=== PATIENT | female | born 1980 | race African-American/Black ===

== ENCOUNTER 2021-10-22 14:16 | Emergency (ER) | payer BC ==
[2021-10-22 15:08] VITALS: TEMP 98.2; BMI 33.0
[2021-10-22 17:34] LABS: BASO % 0.4 % (0-2.0); EOS % 1.8 % (0-4.5); HEMATOCRIT 41.3 % (32.4-45.2); HEMOGLOBIN 13.6 GM/dL (10.7-15.3); LYMPH % 31.7 % (8-40); MCH 25.7 pg (25.7-33.7); MEAN CELL VOLUME 77.8 fl (80-96); MEAN PLT VOLUME 7.6 fl (7.5-11.1); MONO % 9.9 % (3.8-10.2); NEUT % 56.2 % (42.8-82.8); PLATELET COUNT 338 10^3/uL (134-434); RBC 5.31 M/mm3 (3.60-5.2); RDW 13.5 % (11.6-15.6); WHITE BLOOD COUNT 7.9 K/mm3 (4.0-10.0)
[2021-10-22 18:03] LABS: CALCIUM 9.3 mg/dL (8.5-10.1)
[2021-10-22 18:04] LABS: BLOOD UREA NITROGEN 8.8 mg/dL (7-18)
[2021-10-22 18:07] LABS: CREATININE 0.8 mg/dL (0.55-1.3)
[2021-10-22 18:09] LABS: BILIRUBIN,TOTAL 0.8 mg/dL (0.2-1); TOT PROT 7.9 g/dl (6.4-8.2)
[2021-10-22 19:24] LABS: EPI CELLS >36 /uL (0-25.1); HYALINE CASTS 2 /uL (0-3.1); URINE APPEARANCE CLOUDY; URINE BACTERIA 316 /uL (0-1359); URINE BILIRUBIN 1+ (NEGATIVE); URINE COLOR DK YELLOW; URINE GLUCOSE (UA) NEGATIVE (NEGATIVE); URINE KETONE TRACE (NEGATIVE); URINE LEUK ESTERASE TRACE (NEGATIVE); URINE NITRITE NEGATIVE (NEGATIVE); URINE PROTEIN 1+ (NEGATIVE); URINE WBC 10 /uL (0-25.8)
[2021-10-22 19:45] VITALS: BP 140/90; PULSE 85
[2021-10-22 21:50] LABS: URINE RBC 78 /uL (0-23.9)
== END 2021-10-22 19:49 | disposition home or self-care (01) ==
LOC: JER 14:16
PROC: 3E0333Z Introduction of Anti-inflammatory into Peripheral Vein, Percutaneous Approach (ICD-10-PCS; principal; 2021-10-22)
PROC: 3E0F7GC Introduction of Other Therapeutic Substance into Respiratory Tract, Via Natural or Artificial Opening (ICD-10-PCS; 2021-10-22)
PROC: 3E033GC Introduction of Other Therapeutic Substance into Peripheral Vein, Percutaneous Approach (ICD-10-PCS; 2021-10-22)
DX: J45.901 Unspecified asthma with (acute) exacerbation (principal)
CPT/HCPCS: 36415; 70450-TC; 71045-TC-FY; 80053; 81003; 84703; 85025; 87086; 99285-25; C9803; J0131; U0003; U0005